=== PATIENT | female | born 1970 | race African-American/Black ===

== ENCOUNTER → 2023-12-25 11:58 | Outpatient (REF) | payer OTHER, SELFPAY | LOC: WDC 11:58 | PROVIDERS: ATTENDING PHYSICIAN Surgery; FAMILY PHYSICIAN Physician Assistant Medical | DX: Z12.31 Encounter for screening mammogram for malignant neoplasm of breast (principal) | CPT/HCPCS: 77063; 77067 ==

== ENCOUNTER → 2024-01-12 09:19 | Outpatient (REF) | payer OTHER, SELFPAY | LOC: RCS 09:19 | PROVIDERS: ATTENDING PHYSICIAN Surgery Plastic and Reconstructive Surgery; FAMILY PHYSICIAN Physician Assistant Medical | DX: Z01.818 Encounter for other preprocedural examination (principal) | CPT/HCPCS: 93005 ==

== ENCOUNTER 2024-01-21 06:13 | Day surgery (SDC) | payer OTHER, SELFPAY ==
[2024-01-21] VITALS (11 sets, daily range): BP systolic 88–160; BP diastolic 51–98; BMI 23.0
[2024-01-21] MEDS: TYLENOL 1000 MG PO (06:33)
[2024-01-21] MEDS: NORMOSOL-R 1000 IV (06:37)
--- NOTE | 2024-01-21 07:26 | W.SUR.PREOP ---
Pre-Operative Surgical Note
-
I have examined this patient prior to the performance of the scheduled procedure.
The patient's condition is unchanged from the time of the current History and
Physical and the patient is able to undergo the scheduled procedure.
--- NOTE | 2024-01-21 11:55 | W.IMMPOSTOP ---
Surgical Immed Post Op Note
-
Primary Surgeon: LISA Cooper MD
Assisting Surgeon:
Pre-op Diagnosis: Right breast cancer
Post-op Diagnosis: Same
Procedure Performed: Right breast accelerator systems director removal, insertion of silicone implant, left balancing aug/pexy, fat grafting to right with donor site abdomen
Anesthesia Type: GA
Specimen / Cultures: None
Estimated Blood Loss: 30cc
Complications: None
Operative Findings: As expected
--- NOTE | 2024-01-21 11:58 | OR.RPT ---
Operative Report
Operative Report
Date of surgery: 01/21/2024
Surgeon: LISA Cooper MD
Preoperative diagnosis: history of right breast cancer, history of right mastectomy, history of immediate director hris reconstruction, history of radiation to the right breast
Postoperative diagnosis: Same
Procedure:
1. Removal of right breast tissue director hris
2. Partial capsulectomies of the right breast
3. Delayed insertion of right silicone gel breast implant
4. Left breast balancing augmentation with silicone gel breast implant
5. Left breast balancing mastopexy
6. Fat grafting to the right breast with donor site trunk, 110 cc
anesthesia: General
EBL: 30 cc
Complications: None
Indications for procedure: Patient is a 53-year-old female with a history of a right sided breast cancer. She underwent nipple sparing mastectomy and immediate reconstruction with a tissue director hris. She had adjuvant radiation therapy and completed
this over 6 months ago. She now presents desiring replacement of her tissue director hris with a silicone gel implant. She has baseline asymmetry from her left [place] breast to the right reconstructed breast. In order to address this we will use a
combination of fat grafting to the right reconstructed breast which had been radiated as well as placement of a breast implant on the left with an inferior pole mastopexy. This is due to her baseline pseudoptosis and postoperative radiation
changes. This was discussed at length as were the associated scars. Risks of silicone gel implants were reviewed at length including ALCL, .BII, rupture, capsular contracture, infection, hematoma, seroma and asymmetry. Risk of fat grafting
reviewed including fat necrosis and donor site morbidity. Risk to the left nipple areolar complex and sensation were also reviewed. she understood these risk desire to proceed.
Procedure in detail: Patient was identified preoperatively and the surgical site was confirmed to be the bilateral breast and trunk. All questions were answered and consents were confirmed. The patient was marked in the upright position and a plan
was made for right inframammary scar incision as well as a left inferior pole resection and partial submuscular placement of a silicone gel breast implant. The relative areas of lipodystrophy were marked over the anterior abdomen and lateral
flanks. Patient was taken back to the operating placed supine the table. Anesthesia was induced and the patient was prepped and draped in the usual sterile fashion using ChloraPrep. Timeout for patient safety was performed was confirmed that
preoperative antibiotics have been administered and bilateral SCDs were placed. Procedure began with the injection 1% lidocaine with epinephrine and the proposed surgical incisions. Bovie electrocautery was used to dissect down following incision
with a 15 blade. On the right portions of redundant capsule and residual ADM were excised after removing the tissue director hris. Partial capsulectomies were performed as needed to achieve an appropriate pocket for the implant. Particular hemostasis
was ensured and the pocket was rinsed with double antibiotic solution followed by Betadine solution. The 470cc gel sizer was utilized to determine the appropriate size of breast implant for the right. A right pec and intercostal block performed
with half percent Marcaine, diluted with normal saline.
Using a no touch technique and a Cee funnel, The implant was placed in the right pocket after donning gloves using a no touch technique. The wound was then closed in 3 layers with 2-0 Vicryl deep followed by 3 and 4 Monocryl. Patient was then
flexed at the waist and the relative symmetry was evaluated. The left breast mastopexy markings were then tailor tacked and the patient was returned supine. using an inframammary incision a partial submuscular dual plane breast augmentation was
carried out. This involved dissection through the pectoralis major leaving a 1 cm cuff inferiorly and releasing the inferior attachments. Sternal attachments were retained. Meticulous hemostasis was ensured as well as a symmetric pocket. A 220
cc implant sizer was then placed and the patient was again flexed at the waist to evaluate the effect of the mastopexy as well as the augmentation. Final adjustments were made and appropriate symmetry had been achieved. The patient was made aware
that without undergoing a periareolar scar that the nipple position may be slightly asymmetric. She was accepting of this. As such we returned her into the supine position and the wound bed was checked for meticulous hemostasis and rinsed with
double antibiotic solution followed by dilute Betadine. Using a no touch technique and a Cee funnel a silicone gel cohesive breast implant was placed into the left breast. This was then closed with a series of 2-0 Vicryl's. The mastopexy was
then performed using a 15 blade excising redundant tissue of the lower pole. Both electrocautery was used to de-epithelialized imbricate this tissue using a series of 2-0 and then 3-0 and 4-0 Monocryl's. Tumescent solution was injected into the
anterior abdomen and lateral flanks. A total of 2 L of tumescent solution was utilized. A SAFE technique was used for obtaining the Lipo aspirate in the
System was used to processed the fat. A total of approximately 600 cc of Lipo aspirate was obtained. This was processed into approximately 100 cc of fat for injection. This was injection through a periareolar stab in the right breast into the
superior pole and inferior pole. A total of 110 cc was injected to the right breast.
Patient tolerated procedure well performed out complication. Wound dressed with bacitracin, dry gauze, Tegaderm. All counts were correct at the end the case. She was extubated taken the PACU for further care.
[2024-01-21] MEDS: DILAUDID 0.25 MG IV (12:03)
[2024-01-21] MEDS: TYLENOL 650 MG PO (12:20)
== END 2024-01-21 13:20 | disposition home or self-care (01) ==
LOC: SDS 06:13
PROVIDERS: ATTENDING PHYSICIAN Surgery Plastic and Reconstructive Surgery
DX: Z85.3 Personal history of malignant neoplasm of breast (principal); Z98.890 Other specified postprocedural states
CPT/HCPCS: 11970; 19380; 19342; 19316; 15771; C1789

== ENCOUNTER → 2024-03-02 17:27 | Outpatient (REF) | payer OTHER, SELFPAY | LOC: MRI 17:27 | PROVIDERS: ATTENDING PHYSICIAN Specialist; FAMILY PHYSICIAN Physician Assistant Medical | DX: R51.9 Headache, unspecified (principal) | CPT/HCPCS: 70553; A9575 ==

== ENCOUNTER 2024-03-03 12:39 | Outpatient (RCR) | payer OTHER, SELFPAY | END 2024-03-03 23:59 | disposition home or self-care (01) | LOC: RPT 12:39 | PROVIDERS: ATTENDING PHYSICIAN Surgery Plastic and Reconstructive Surgery; FAMILY PHYSICIAN Physician Assistant Medical | DX: I97.2 Postmastectomy lymphedema syndrome (principal); D05.11 Intraductal carcinoma in situ of right breast; Z17.0 Estrogen receptor positive status [ER+]; L90.5 Scar conditions and fibrosis of skin; R29.3 Abnormal posture | CPT/HCPCS: 97162; 97535 ==

== ENCOUNTER 2024-04-06 17:37 | Outpatient (RCR) | payer OTHER, SELFPAY | END 2024-04-06 23:59 | disposition home or self-care (01) | LOC: RPT 17:37 | PROVIDERS: ATTENDING PHYSICIAN Surgery Plastic and Reconstructive Surgery; FAMILY PHYSICIAN Physician Assistant Medical | DX: I97.2 Postmastectomy lymphedema syndrome (principal); D05.11 Intraductal carcinoma in situ of right breast; N94.10 Unspecified dyspareunia; L90.5 Scar conditions and fibrosis of skin; G62.82 Radiation-induced polyneuropathy; R29.3 Abnormal posture; M62.81 Muscle weakness (generalized); Z90.11 Acquired absence of right breast and nipple | CPT/HCPCS: 97110; 97140; 97164; 97530; 97535 ==

== ENCOUNTER 2024-05-11 15:20 | Outpatient (RCR) | payer OTHER, SELFPAY | END 2024-05-11 23:59 | disposition home or self-care (01) | LOC: RPT 15:20 | PROVIDERS: ATTENDING PHYSICIAN Surgery Plastic and Reconstructive Surgery; FAMILY PHYSICIAN Physician Assistant Medical | DX: I97.2 Postmastectomy lymphedema syndrome (principal); D05.11 Intraductal carcinoma in situ of right breast; Z17.0 Estrogen receptor positive status [ER+]; L90.5 Scar conditions and fibrosis of skin; G62.82 Radiation-induced polyneuropathy; R29.3 Abnormal posture; N94.10 Unspecified dyspareunia; Z73.6 Limitation of activities due to disability | CPT/HCPCS: 97110; 97140; 97530 ==

== ENCOUNTER → 2024-05-24 16:43 | Outpatient (REF) | payer OTHER, SELFPAY | LOC: RAD 16:43 | PROVIDERS: ATTENDING PHYSICIAN Physician Assistant Medical | DX: Z20.828 Contact with and (suspected) exposure to other viral communicable diseases (principal) | CPT/HCPCS: 71046 ==

== ENCOUNTER 2024-06-01 18:13 | Outpatient (RCR) | payer OTHER, SELFPAY | END 2024-06-02 06:52 | disposition home or self-care (01) | LOC: RPT 18:13 | PROVIDERS: ATTENDING PHYSICIAN Surgery Plastic and Reconstructive Surgery; FAMILY PHYSICIAN Physician Assistant Medical | DX: I97.2 Postmastectomy lymphedema syndrome (principal); D05.11 Intraductal carcinoma in situ of right breast; Z17.0 Estrogen receptor positive status [ER+]; L90.5 Scar conditions and fibrosis of skin; G62.82 Radiation-induced polyneuropathy; R29.3 Abnormal posture; N94.10 Unspecified dyspareunia; Z73.6 Limitation of activities due to disability; M62.81 Muscle weakness (generalized); Z90.11 Acquired absence of right breast and nipple | CPT/HCPCS: 97110; 97112; 97530 ==

== ENCOUNTER → 2024-10-11 08:00 | Outpatient (REF) | payer OTHER, SELFPAY | LOC: RAD 08:00 | PROVIDERS: ATTENDING PHYSICIAN Family Medicine; FAMILY PHYSICIAN Physician Assistant Medical | DX: E04.9 Nontoxic goiter, unspecified (principal) | CPT/HCPCS: 76536 ==

== ENCOUNTER → 2024-12-27 12:54 | Outpatient (REF) | payer OTHER, SELFPAY | LOC: WDC 12:54 | PROVIDERS: ATTENDING PHYSICIAN Radiology Radiation Oncology; FAMILY PHYSICIAN Physician Assistant Medical | DX: Z12.31 Encounter for screening mammogram for malignant neoplasm of breast (principal) | CPT/HCPCS: 77063; 77067 ==

== ENCOUNTER 2025-05-05 06:14 | Day surgery (SDC) | payer OTHER, SELFPAY | END 2025-05-05 13:06 | disposition home or self-care (01) | LOC: GI 06:14 | PROVIDERS: ATTENDING PHYSICIAN Internal Medicine Gastroenterology | DX: Z12.11 Encounter for screening for malignant neoplasm of colon (principal); K57.30 Diverticulosis of large intestine without perforation or abscess without bleeding; K64.8 Other hemorrhoids; D12.2 Benign neoplasm of ascending colon; D12.4 Benign neoplasm of descending colon; Z86.0100 Personal history of colon polyps, unspecified | CPT/HCPCS: 45385; 45380; 88305 ==